=== PATIENT | female | born 1985 | race Caucasian/White ===

== ENCOUNTER 2017-07-09 09:18 | Inpatient (IN) | payer MEDICARE, MEDICAID ==
[2017-07-09] MEDS ORDERED: Ondansetron ODT 4 MG TAB PO PRN (13:14)
[2017-07-09] MEDS ORDERED: Ondansetron HCl/PF 4 MG/2 ML Vial IVP PRN (13:14)
[2017-07-09 13:16] LABS: ALT (SGPT) 16 U/L (8-55); AST (SGOT) 17 U/L (5-34); Albumin 3.2 g/dL (3.5-5.0); Alkaline Phosphatase 120 U/L (40-150); Anion Gap 18 mmol/L (10-20); BUN (Urea Nitrogen) 12 mg/dL (7.0-18.7); Bilirubin, Total 0.9 mg/dL (0.2-1.2); Calc. Creatinine Clearance 0 mL/min (70-130); Calcium 8.7 mg/dL (7.8-10.44); Carbon Dioxide 21 mmol/L (22-29); Chloride 105 mmol/L (98-107); Estimated GFR-MDRD Greater than 90; Globulin 3.5 g/dL (2.4-3.5); Glucose 130 mg/dL (70-105); Lipase 6 U/L (8-78); Potassium 3.7 mmol/L (3.5-5.1); Protein, Total 6.7 g/dL (6.0-8.3); Sodium 140 mmol/L (136-145)
[2017-07-09 13:21] LABS: Band 10 % (5-11); Hemoglobin 12.6 g/dL (12.0-16.0); Lymphocytes 1 % (21-51); MDiff Complete? YES; Mean Corpuscular HGB CONC 33.9 g/dL (32.0-36.0); Mean Corpuscular Hemoglobin 30.4 pg (27.0-31.0); Mean Corpuscular Volume 89.6 fl (81.0-99.0); Mean Platelet Volume 6.2 fL (7.4-10.4); Monocytes 11 % (0-10); Neutrophil 78 % (42-75); PLT Morphology Comment Appears Adequate; Platelet Count 294 thou/uL (130-400); RBC Distribution Width 11.2 % (11.5-14.5); RBC Morphology Normal; Red Blood Cell (RBC) Count 4.13 mill/uL (4.20-5.40); White Blood Cell (WBC) Count 32.2 thou/uL (4.8-10.8)
[2017-07-09 13:22] LABS: Lactic Acid 1.7 mmol/L (0.5-2.2)
[2017-07-09 13:23] LABS: Bilirubin Small (Negative); Blood, Urine Large (Negative); Clarity Cloudy (Clear); Glucose, Urine (Dipstick) Negative (Negative); Leukocyte Negative (Negative); Nitrite Negative (Negative); Protein, Urine (Dipstick) > or equal to 300 mg/dL (Neg-Trace); Specific Gravity, Urine 1.025 (1.005-1.030); pH, Urine 5.5 (5.0-9.0)
[2017-07-09 13:25] LABS: Bacteria/HPF 3+ HPF (None Seen); Crystals/HPF 3+ AMORPH URATES HPF (Negative); Hyaline Casts/LPF 0-3 HYALINE CAST LPF (0-3 Hyaline)
[2017-07-09 13:26] LABS: Pregnancy Test - Urine (BHCG) Negative (Negative); Pregu Control Background? CLEAR/WHITE (CLR/WHITE); Pregu Control Bar Appear? YES (CONTROL BAR); Specific Gravity 1.025 (1.002-1.036)
[2017-07-09] MEDS: Sodium Chloride 0.9% 1,000 ML IV SCH ×2 (13:46→23:57)
[2017-07-09] MEDS: HYDROcodone/Acetaminophen 5/325 mg Tablet PO PRN (15:10)
[2017-07-09 16:05] VITALS: BMI 44.7
--- NOTE | 2017-07-09 18:29 | RAD ---
CHEST TWO VIEWS 07/09/17 Comparison is made with an 07/05 study. In the interval, there has been the appearance of a dense left upper lobe consolidation that was not present before. The findings are consistent with pneumonia. The right lung is clear. the heart is sli ghtly enlarged. No effusions are seen. The bony structures appears intact. IMPRESSION: Dense left upper lobe pneumonia, a new finding since 07/05. POS: HOME
[2017-07-09] MEDS: Acetaminophen 325 MG TAB PO PRN (18:42)
[2017-07-09] MEDS: Enoxaparin Sodium 40 MG/0.4 ML SYRINGE SC SCH (20:45)
[2017-07-09] MEDS ORDERED: Phenergan/Codeine 10-6.25mg/5ml UDCUP PO PRN (22:25)
[2017-07-09] MEDS ORDERED: Benzonatate 100 MG CAP PO PRN ×2 (23:42)
[2017-07-10] MEDS: Acetaminophen 325 MG TAB PO PRN ×2 (03:57→18:37)
[2017-07-10 06:12] LABS: Anion Gap 13 mmol/L (10-20); BUN (Urea Nitrogen) 10 mg/dL (7.0-18.7); Calc. Creatinine Clearance 280 mL/min (70-130); Calcium 8.8 mg/dL (7.8-10.44); Carbon Dioxide 22 mmol/L (22-29); Chloride 106 mmol/L (98-107); Estimated GFR-MDRD Greater than 90; Glucose 146 mg/dL (70-105); Potassium 3.2 mmol/L (3.5-5.1); Sodium 138 mmol/L (136-145)
[2017-07-10 06:48] LABS: #Basophils 0.1 thou/uL (0.0-0.2); #Eosinphils 0.1 thou/uL (0.0-0.7); #Lymphocytes 1.8 thou/uL (1.20-3.40); #Monocytes 1.5 thou/uL (0.11-0.59); #Neutrophils 17.3 thou/uL (1.40-6.50); %Basophils 0.4 % (0.0-1.0); %Eosinophils 0.3 % (0.0-10.0); %Lymphocytes 8.6 % (21.0-51.0); %Monocytes 7.3 % (0.0-10.0); %Neutrophils 83.5 % (42.0-75.0); Hemoglobin 10.4 g/dL (12.0-16.0); Mean Corpuscular HGB CONC 33.7 g/dL (32.0-36.0); Mean Corpuscular Hemoglobin 30.2 pg (27.0-31.0); Mean Corpuscular Volume 89.5 fl (81.0-99.0); Mean Platelet Volume 5.8 fL (7.4-10.4); Platelet Count 246 thou/uL (130-400); RBC Distribution Width 11.2 % (11.5-14.5); Red Blood Cell (RBC) Count 3.46 mill/uL (4.20-5.40); White Blood Cell (WBC) Count 20.8 thou/uL (4.8-10.8)
--- NOTE | 2017-07-10 09:41 | HP ---
DATE OF ADMISSION: 07/09/2017 PRIMARY CARE PHYSICIAN: Dr. Deanne Henriquez. ATTENDING PHYSICIAN: Isela Redd M.D. CHIEF COMPLAINT: High grade fever, back pain, vomiting, and weakness. HISTORY OF PRESENT ILLNESS: Ms. Flores is a 32-year-old female with history of hypertension, developmental delay, obesity, and depression, her condition started with upper respiratory symptoms 3 weeks prior. She was seen at [facility] and was treated with amoxicillin. She came back with worsening symptoms and at that time she was given Doxycycline. With no improvement of her symptoms, she developed fever, worsening cough, went back again on 07/05/2017, which she was tested for flu and had negative chest x -ray. She was given a steroid shot. Her symptoms continued with a fever, back pain and progressive weakness. She was seen this time by her PCP yesterday and had a CBC drawn and told to continue symptomatic treatment, pending CBC results. However, last night, the patient experienced fever with chills, persistent productive cough, loss of appetite, and this morning had nausea and vomiting . She was contacted by her PCP and was advised to go to the emergency room for further treatment because of her elevated white count, suggesting bacterial process. At the emergency room, her blood pressure was 163/89, pulse was 94, saturation was 96 at the room air, and temperature was 99.2. She was tender on her left-sided mid back. Her labs demonstrated white count of 32.2, hemoglobin of 12.6, hematocrit of 37, and platelet count of 294. CMP showed sodium of 140, potassium of 3.7, carbon dioxide of 21, BUN of 12, creatinine of 0.72. Urinalysis showed proteinuria with positive ketones, presence of large blood with 3+ bacteria. Her chest x-ray showed appearance of dense left upper lobe consolidation that was not present on 07/05/2017. This finding was consistent for pneumonia. The patient received 2 liters of normal saline and started on Levaquin. Ms. Flores is meeting criteria for sepsis with a community-acquired pneumonia at the left upper lobe. She has decreased oral intake. Her urinalysis was also abnormal hence this admission. This evening, she is complaining of productive cough with fever, her appetite is slightly better. She denies any shortness of breath. PAST MEDICAL HISTORY: 1. Hypertension. 2. Obesity. 3. Depression. 4. Allergies. 5. Developmental delay. PAST SURGICAL HISTORY: 1. Repair of hole in the leg in 1997. 2. Tonsillectomy. 3. [place] tooth extraction. 4. Hand surgery. FAMILY HISTORY: Both parents have hypertension. SOCIAL HISTORY: The patient is a nonsmoker and nonalcoholic drinker. She lives with her parents. She completed high school in 2004. ALLERGIES: She has allergy from CECLOR causing a generalized rash, positive for allergy from LATEX, BAND-AID, and AZITHROMYCIN causing stomach upset. CURRENT MEDICATIONS: 1. Multivitamin. 2. Gildess iron. 3. Prozac 40 mg daily. 4. Metoprolol 50 mg extended release daily. 5. Tussionex Pennkinetic ER suspension 5 mL every 12 hours p.r.n. for cough. REVIEW OF SYSTEMS: GENERAL: Positive for high-grade fever, positive for body aches, positive for chills. HEENT: Negative for nasal congestion. Negative for sore throat. PULMONARY: Positive for productive cough. Positive for mid back pain. GASTROINTESTINAL: Positive for nausea. Positive for vomiting, no constipation or diarrhea. NEUROLOGIC: No headaches, no paresthesias, no numbness. GENITOURINARY: Negative for dysuria, negative for hematuria. MUSCULOSKELETAL: Generalized muscle aches. Negative for joint pain. PSYCHIATRIC: Positive for depression, stable. Negative for homicidal or suicidal ideation. PHYSICAL EXAMINATION: VITAL SIGNS: Blood pressure of 179/79, temperature of 101, pulse of 99, respiratory rate 20, and O2 sat 99%. GENERAL: The patient is alert, oriented, ill-appearing. Not in respiratory distress. HEENT: Normocephalic, atraumatic. Pupils equally reactive to light. NECK: Supple, negative for lymphadenopathy. CHEST AND LUNGS: Symmetrical expansion, positive for crackles on left upper lung reyes. Good breath sounds on right upper and lower lung reyes. HEART: Tachycardic, regular rate and rhythm. Negative for murmur, rubs or gallops. ABDOMEN: Globular, nontender, normoactive bowel sounds. EXTREMITIES: No cyanosis and edema. NEUROLOGIC: Cranial nerves II through XII intact, oriented x3. PSYCHIATRIC: Appropriate affect and demeanor. ASSESSMENT: 1. Sepsis with community-acquired left upper lobe pneumonia. 2. Pyuria. 3. Generalized weakness, hemodynamically stable secondary to #1. 4. Hypertension. 5. Depression. 6. Obesity. 7. Developmental delay. PLAN: 1. Continue IV Levaquin. 2. Continue fluid hydration. 3. DuoNeb q. 6 hours scheduled when awake. 4. Incentive spirometer every 2 hours. 5. Symptomatic medication. 6. Resume home medications. 7. A.m. labs ordered. 8. Deep venous thrombosis prophylaxis with Lovenox. 9. Routine nursing care. 10. DISPOSITION: To home once clinically stable. 11. The patient is meeting criteria for 2-midnight stay to treat sepsis with left upper lobe pneumonia. MTDD
[2017-07-10] MEDS: Sodium Chloride 0.9% 1,000 ML IV SCH (10:23)
[2017-07-10] MEDS: HYDROcodone/Acetaminophen 5/325 mg Tablet PO PRN (16:47)
[2017-07-10] MEDS: Potassium Chloride 20 MEQ TAB PO SCH (16:48)
[2017-07-10] MEDS: Enoxaparin Sodium 40 MG/0.4 ML SYRINGE SC SCH (20:09)
[2017-07-10] MEDS: [UNRECOGNIZED DRUG - OTHER] PO PRN (20:33)
[2017-07-11] MEDS: [UNRECOGNIZED DRUG - OTHER] PO PRN ×4 (02:07→21:08)
[2017-07-11] MEDS: Sodium Chloride 0.9% 1,000 ML IV SCH ×2 (02:09→12:35)
[2017-07-11 06:00] LABS: #Basophils 0.1 thou/uL (0.0-0.2); #Eosinphils 0.4 thou/uL (0.0-0.7); #Lymphocytes 2.1 thou/uL (1.20-3.40); #Neutrophils 9.8 thou/uL (1.40-6.50); %Basophils 0.8 % (0.0-1.0); %Eosinophils 3.3 % (0.0-10.0); %Lymphocytes 15.6 % (21.0-51.0); %Monocytes 7.3 % (0.0-10.0); %Neutrophils 73.1 % (42.0-75.0); Hemoglobin 11.3 g/dL (12.0-16.0); Mean Corpuscular HGB CONC 34.3 g/dL (32.0-36.0); Mean Corpuscular Hemoglobin 30.9 pg (27.0-31.0); Mean Platelet Volume 5.6 fL (7.4-10.4); Platelet Count 310 thou/uL (130-400); RBC Distribution Width 11.6 % (11.5-14.5); Red Blood Cell (RBC) Count 3.66 mill/uL (4.20-5.40); White Blood Cell (WBC) Count 13.4 thou/uL (4.8-10.8)
[2017-07-11] MEDS: Potassium Chloride 20 MEQ TAB PO SCH ×2 (07:46→16:00)
[2017-07-11] MEDS: HYDROcodone/Acetaminophen 5/325 mg Tablet PO PRN ×2 (07:47→15:55)
[2017-07-11 10:45] LABS: Anion Gap 15 mmol/L (10-20); BUN (Urea Nitrogen) 7 mg/dL (7.0-18.7); Calc. Creatinine Clearance 309 mL/min (70-130); Calcium 9.1 mg/dL (7.8-10.44); Carbon Dioxide 24 mmol/L (22-29); Chloride 103 mmol/L (98-107); Estimated GFR-MDRD Greater than 90; Glucose 98 mg/dL (70-105); Potassium 3.2 mmol/L (3.5-5.1); Sodium 139 mmol/L (136-145)
--- NOTE | 2017-07-11 12:30 | PRG ---
DATE OF SERVICE: 07/10/2017 SUBJECTIVE: The patient is slightly better today, she has faint rash on the left hand site of her IV. She has increased appetite, no vomiting or nausea. She took a shower this afternoon. She denies any shortness of breath; however, she is still coughing clear sputum. Her Tessalon Perles is not helping. OBJECTIVE: VITAL SIGNS: Blood pressure of 141/71, temperature of 100, pulse of 92, respiratory rate of 20, O2 saturation 97%. GENERAL: Patient is alert, oriented, not in respiratory distress. HEENT: Normocephalic, atraumatic. Pupils equally reactive to light. NECK: Supple. Negative for lymphadenopathy. CHEST AND LUNGS: Symmetrical, expansion positive for crackles on the left upper lung reyes, coarse breath sounds on right upper and both lower lung reyes. HEART: Slightly tachycardic, regular rhythm. Negative for murmur. ABDOMEN: Globular, nontender, normoactive bowel sounds. MUSCULOSKELETAL: No cyanosis or edema. Positive for faint redness on the dorsal aspect of the left forearm. NEUROLOGIC: Cranial nerves II-XII intact, oriented x3, no focal motor or sensory deficits. PSYCHIATRIC: Appropriate affect and demeanor. LABORATORY DATA: CBC: WBC of 20, hemoglobin of 10.4, hematocrit of 30.9, platelet count of 246, neutrophils of 83%. BMP: Sodium of 138, potassium of 3.2, BUN of 10, creatinine of 0.65, and glucose of 146. Blood culture x2 negative. ASSESSMENT: 1. Sepsis with community-acquired left upper lobe pneumonia. 2. Generalized weakness secondary to #1. 3. Pyuria, pending urine culture. 4. Hypertension. 5. Depression. 6. Obesity. 7. Developmental delay. PLAN: 1. Continue IV Levaquin, continue fluid hydration, decrease to 75 mL per hour. 2. Continue DuoNeb every 6 hours p.r.n. when awake. 3. Continue incentive spirometry. 4. Symptomatic medication. 5. Initiate cough suppressant every 4 hours p.r.n. 6. A.m. labs ordered. 7. DVT prophylaxis with Lovenox. 8. Routine nursing care. DISPOSITION: Possibly discharge in 1-[address] [facility]
[2017-07-11] MEDS ORDERED: Zolpidem Tartrate 5 MG TAB PO PRN (16:04)
[2017-07-11] MEDS ORDERED: HYDROcodone/Acetaminophen 10/325 mg Tablet PO PRN (16:04)
[2017-07-11] MEDS: Enoxaparin Sodium 40 MG/0.4 ML SYRINGE SC SCH (20:08)
[2017-07-12 06:35] VITALS: BP 139/67; TEMP 98
[2017-07-12] MEDS: Potassium Chloride 20 MEQ TAB PO SCH (07:33)
[2017-07-12] MEDS: [UNRECOGNIZED DRUG - OTHER] PO PRN (07:33)
--- NOTE | 2017-07-13 10:36 | PRG ---
DATE OF SERVICE: 07/11/2017 SUBJECTIVE: The patient is complaining of soreness in her chest, did not sleep well last night due t o persistent coughing, breathing is better. No fever, no chills. The patient is eager to go home. OBJECTIVE: VITAL SIGNS: Blood pressure of 137/82, temperature 98.4, pulse of 82, respiratory rate of 24, O2 sat 95% on room air. GENERAL: Patient is alert, oriented, in mild distress secondary to pain in her chest. HEENT: Normocephalic, atraumatic. Pupils equally reactive to light. NECK: Supple. Negative for lymphadenopathy. CHEST AND LUNGS: Symmetrical expansion. Positive for crackles on left upper lung reyes, coarse shantel ath sounds on right and lower lung reyes. HEART: Slightly tachycardic, regular rhythm. ABDOMEN: Globular and soft, nontender. MUSCULOSKELETAL: No cyanosis. Positive for faint redness on the dorsal aspect of left forearm, impr oving. NEUROLOGIC: Cranial nerves II through XII intact. PSYCHIATRIC: Appropriate affect and demeanor. LABORATORY DATA: CBC: WBC of 13.4, hemoglobin of 11.3, hematocrit of 32.9. BMP: Sodium 139, potas sium of 3.2, BUN of 7, creatinine of 0.59, glucose 98. ASSESSMENT: 1. Sepsis with community acquired left upper lobe pneumonia, improving. 2. Generalized weakness, resolved. 3. Pyuria with negative urine culture. 4. Hypokalemia. 5. Hypertension. 6. Depression. 7. Insomnia. 8. Obesity. 9. Developmental delay. PLAN: 1. Continue IV Levaquin 2. Discontinue IV fluid repletion. 3. Continue DuoNeb every 6 hours when awake. 4. Continue incentive spirometry. 5. Continue replacement of potassium loss. 6. Symptomatic medication. 7. Continue cough suppressant every 4 hours p.r.n. 8. Start Ambien p.r.n. for insomnia. 9. Continue deep venous thrombosis prophylaxis with Lovenox. 10. Routine nursing care. DISPOSITION: Discharge in a.m., if the patient's condition continued to improve.
== END 2017-07-12 12:39 | disposition home or self-care (01) | DRG 871 ==
LOC: BURERS 09:18 → BURMED 12:09
PROVIDERS: ADMIT Family Medicine; ATTEND Family Medicine
DX: A41.9 Sepsis, unspecified organism (principal); J18.9 Pneumonia, unspecified organism; Z68.41 Body mass index [BMI] 40.0-44.9, adult; I10 Essential (primary) hypertension; Z23 Encounter for immunization; E66.9 Obesity, unspecified; F32.9 Major depressive disorder, single episode, unspecified; R62.50 Unspecified lack of expected normal physiological development in childhood; G47.00 Insomnia, unspecified; E87.6 Hypokalemia
CPT/HCPCS: 36415; 51701; 71020; 80048; 80053; 81003; 81015; 81025; 83605; 83690; 85025; 87040; 87086; 90471; 90732; 96361; 96365; 96375; A4216; A4353; G0009; J1650; J1956; J7620; Q0162

== ENCOUNTER 2017-07-22 12:36 | Outpatient (CLI) | payer MEDICARE, MEDICAID ==
--- NOTE | 2017-07-22 22:03 | RAD ---
CHEST TWO VIEWS 07/22/17 Comparison is made with the 07/09 study. There has been dramatic resolution of the left upper lobe co nsolidation. There is only minimal residual. The heart is mildly enlarged. There are no congestive ch anges or pleural effusions present. The trachea is midline. IMPRESSION: Nearly complete resolution of the dense left upper lobe consolidation. POS: HOME
== END 2017-07-22 12:37 | disposition home or self-care (01) ==
LOC: BURRAD 12:36
PROVIDERS: ATTEND Family Medicine
DX: J16.8 Pneumonia due to other specified infectious organisms (principal)
CPT/HCPCS: 71020

== ENCOUNTER 2019-01-13 21:13 | Emergency (ER) | payer MEDICARE, OTHER ==
[2019-01-13] MEDS ORDERED: Acetaminophen/Codeine 30-300mg Tablet ONE (21:44)
[2019-01-13] MEDS ORDERED: Cyclobenzaprine 10 MG TAB ONE (21:44)
[2019-01-13] MEDS ORDERED: Ketorolac Tromethamine 30 MG/ML VIAL ONE (21:45)
== END 2019-01-13 22:51 | disposition home or self-care (01) ==
LOC: BURERS 21:13
DX: M54.5 Low back pain (principal); F39 Unspecified mood [affective] disorder; I10 Essential (primary) hypertension; Z79.899 Other long term (current) drug therapy
CPT/HCPCS: 96372; J1885